=== PATIENT | female | born 1985 | race African-American/Black ===

== ENCOUNTER 2021-01-19 08:44 | Outpatient (CLI) | payer OTHER | END 2021-01-19 08:45 | disposition home or self-care (01) | LOC: CSHULT 08:44 | PROVIDERS: ATTEND Family Medicine | DX: O09.522 Supervision of elderly multigravida, second trimester (principal); Z3A.20 20 weeks gestation of pregnancy | CPT/HCPCS: 76805 ==

== ENCOUNTER 2024-03-06 10:50 | Emergency (ER) | payer OTHER, SELFPAY | END 2024-03-06 12:00 | disposition home or self-care (01) | LOC: CSHERS 10:50 | DX: B37.31 Acute candidiasis of vulva and vagina (principal) | CPT/HCPCS: 99283 ==

== ENCOUNTER 2024-11-26 16:49 | Emergency (ER) | payer SELFPAY ==
[2024-11-26] MEDS ORDERED: predniSONE 20 MG TAB ONE (17:57)
[2024-11-26] MEDS ORDERED: Acetaminophen 500 MG TAB ONE (17:58)
[2024-11-26 18:43] LABS: ALT (SGPT) 8 U/L (Less than 34); AST (SGOT) 19 U/L (11-34); Albumin 4.0 g/dL (3.1-4.5); Alkaline Phosphatase 50 U/L (40-110); Anion Gap 10 mmol/L (10-20); BUN (Urea Nitrogen) 10 mg/dL (7.0-18.7); Bilirubin, Total 0.4 mg/dL (0.3-1.2); Calc. Creatinine Clearance 0 mL/min (70-130); Calcium 9.3 mg/dL (7.8-10.44); Carbon Dioxide 24 mmol/L (22-29); Chloride 109 mmol/L (98-107); Globulin 3.5 g/dL (2.4-3.5); Glucose 81 mg/dL (70-105); Potassium 4.0 mmol/L (3.5-5.1); Sodium 139 mmol/L (136-145)
[2024-11-26 18:43] LABS: Pregnancy Test - Urine (BHCG) Negative (Negative); Pregu Control Background? CLEAR/WHITE (CLR/WHITE); Pregu Control Bar Appear? YES (CONTROL BAR)
[2024-11-26 18:46] LABS: #Basophils 0.05 10x3/uL (0.0-0.2); #Eosinophils 0.29 10x3/uL (0.0-0.5); #Monocytes 0.52 10x3/uL (0.0-1.1); #Neutrophils 2.91 10x3/uL (1.5-8.4); %Basophils 0.9 % (0.0-2.0); %Eosinophils 5.1 % (0.0-6.0); %Lymphocytes 33.7 % (18.0-47.0); %Monocytes 9.1 % (0.0-10.0); %Neutrophils 51.0 % (40.0-75.0); Hematocrit 33.9 % (34.9-44.5); Hemoglobin 10.7 g/dL (12.0-15.5); Mean Corpuscular Hemoglobin 26.3 pg (27.0-33.0); Mean Corpuscular Volume 83.3 fL (81.6-98.3); Platelet Count 355 10x3/uL (150-450); Red Blood Cell (RBC) Count 4.07 10x6/uL (3.90-5.03); White Blood Cell (WBC) Count 5.70 10x3/uL (3.5-10.5)
[2024-11-26 18:49] LABS: Glucose, Urine (Dipstick) Negative (Negative); Leukocyte Small (Negative); Protein, Urine (Dipstick) Negative (Neg-Trace); Specific Gravity, Urine 1.015 (1.005-1.030)
[2024-11-26 19:02] LABS: Bacteria/HPF 4+ HPF (None Seen); CAUTI Indications for Culture Pelvic or flank pain; Mucous/LPF 1+ LPF (<2+); RBC/HPF 0-3 HPF (0-3)
[2024-11-26 19:04] LABS: Urine Culture Reflex No No
== END 2024-11-26 19:05 | disposition home or self-care (01) ==
LOC: CSHERS 16:49
DX: N39.0 Urinary tract infection, site not specified (principal); J32.9 Chronic sinusitis, unspecified; U07.1 COVID-19
CPT/HCPCS: 36415; 80053; 81001; 81025; 85025; 87428; 99283; J7512

== ENCOUNTER 2024-12-17 12:21 | Emergency (ER) | payer SELFPAY ==
[2024-12-17 13:09] LABS: Glucose, Urine (Dipstick) Normal (Negative); Leukocyte 25 (Negative); Protein, Urine (Dipstick) 15 mg/dl (Neg-Trace); Specific Gravity, Urine 1.015 (1.005-1.030)
[2024-12-17 14:18] LABS: Bacteria/HPF 2+ HPF (None Seen); CAUTI Indications for Culture Pelvic or flank pain; Mucous/LPF 1+ LPF (<2+); RBC/HPF 0-3 HPF (0-3); WBC/HPF 0-3 HPF (0-3)
[2024-12-17 14:19] LABS: Urine Culture Reflex No No
[2024-12-18 01:16] LABS: Chlamydia by PCR, Vaginal Swab Not Detected (NotDetected); GC by PCR, Vaginal Swab Not Detected (NotDetected); Tric.vaginalis PCR,Vaginal Sw Not Detected (NotDetected)
== END 2024-12-17 14:35 | disposition home or self-care (01) ==
LOC: CSHERS 12:21
DX: M54.50 Low back pain, unspecified (principal); Z20.822 Contact with and (suspected) exposure to COVID-19
CPT/HCPCS: 81001; 87428; 87480; 87491; 87510; 87591; 87660; 87661; 99283